=== PATIENT | female | born 1970 | race Caucasian/White ===

== ENCOUNTER 2018-01-05 23:47 | Emergency (ER) | payer MEDICAID ==
[~2018-01-05] VITALS: Ht 162.6 cm; Wt 57.3 kg
[2018-01-05 23:50] VITALS: BP 126/80
[2018-01-06] MEDS ORDERED: LIDOCAINE-MPF 1%, 2ML ONE (00:32)
[2018-01-06] MEDS ORDERED: LIDOCAINE GEL 2%, 5ML ONE (00:34)
[2018-01-06] MEDS ORDERED: LIDOCAINE-MPF 1%, 2ML INFIL ONE (01:00)
== END 2018-01-06 00:59 | disposition home or self-care (01) ==
LOC: ED 23:59
DX: H92.01 Otalgia, right ear (principal); Z87.891 Personal history of nicotine dependence
CPT/HCPCS: 99282